=== PATIENT | female | born 1985 | race American Indian/Alaskan Native ===

== ENCOUNTER 2019-03-26 08:24 | Emergency (ER) | payer OTHER ==
--- NOTE | 2019-03-26 09:03 | Emergency Department Report ---
<NAVARRO KIRKLAND T - Last Filed: 03/26/19 08:59> ED General Adult HPI - General Chief complaint: Medical Clearance Stated complaint: STICK WITH NEEDLE Time Seen by Provider: 03/26/19 08:56 Source: patient Mode of arrival: Ambulatory Limitations: No Limitations - History of Present Illness Initial comments: stuck with needle, pt refused labs, requesting PEP - Related Data Previous Rx's Medication Instructions Recorded Last Taken Type Zidovudine 300 mg PO BID #56 tablet 03/26/19 Unknown Rx lamiVUDine [Lamivudine] 150 mg PO BID #56 tablet 03/26/19 Unknown Rx Allergies Allergy/AdvReac Type Severity Reaction Status Date / Time No Known Allergies Allergy Verified 03/26/19 08:27 ED Review of Systems Comment: All other systems reviewed and negative ED Past Medical Hx - Past Medical History Previous Medical History?: No - Surgical History Past Surgical History?: No - Social History Smoking Status: Never Smoker Substance Use Type: None - Medications Home Medications: Home Medications Medication Instructions Recorded Confirmed Last Taken Type Zidovudine 300 mg PO BID #56 tablet 03/26/19 Unknown Rx lamiVUDine [Lamivudine] 150 mg PO BID #56 tablet 03/26/19 Unknown Rx ED Physical Exam - General Limitations: No Limitations General appearance: alert, in no apparent distress - Head Head exam: Present: atraumatic, normocephalic ED Medical Decision Making - Medical Decision Making PEP Rx ED Disposition Clinical Impression: Needle stick injury of finger Disposition: DC-01 TO HOME OR SELFCARE Is pt being admited?: No Condition: Good Prescriptions: lamiVUDine [Lamivudine] 150 mg PO BID #56 tablet Zidovudine 300 mg PO BID #56 tablet Referrals: [facility] MD DEVAUGHN [Primary Care Provider] - 3-5 Days Time of Disposition: 09:03 <MIKAEL SOLIS P - Last Filed: 04/14/19 05:57> ED Review of Systems ROS: Stated complaint: STICK WITH NEEDLE Other details as noted in HPI ED Course Vital Signs 03/26/19 08:45 Temperature 97.8 F Pulse Rate 75 Respiratory 17 Rate Blood Pressure 126/60 [Left] O2 Sat by Pulse 100 Oximetry ED Medical Decision Making - Lab Data Result diagrams: 03/26/19 09:11 03/26/19 09:11 Critical care attestation.: If time is entered above; I have spent that time in minutes in the direct care of this critically ill patient, excluding procedure time. ED Disposition Is pt being admited?: No
[2019-03-26 09:48] VITALS: BP 126/60
[2019-03-26 10:04] LABS: HCG Qualitative,Urine Negative (Negative)
[2019-03-26 10:06] LABS: Bacteria,Urine 2+ /HPF (Negative); Bilirubin,Urine NEG (Negative); Blood,Urine MOD (Negative); Color,Urine Yellow (Yellow); Mucus,Urine FEW /HPF; Protein,Urine <15 mg/dL mg/dL (Negative); Urobilinogen,Urine < 2.0 mg/dL (<2.0)
[2019-03-26 10:22] LABS: Basophils % (Auto) 0.6 % (0.0-1.8); Eosinophils # (Auto) 0.1 K/mm3 (0.0-0.4); Eosinophils % (Auto) 1.4 % (0.0-4.3); Hematocrit 38.2 % (30.3-42.9); Hemoglobin 12.5 gm/dl (10.1-14.3); Lymphocytes # (Auto) 1.5 K/mm3 (1.2-5.4); Lymphocytes % (Auto) 39.3 % (13.4-35.0); Mean Corpuscular HGB Conc 33 % (30-34); Mean Corpuscular Volume 84 fl (79-97); Monocytes # (Auto) 0.4 K/mm3 (0.0-0.8); Monocytes % (Auto) 10.6 % (0.0-7.3); Platelet Count 186 K/mm3 (140-440); Red Blood Count 4.56 M/mm3 (3.65-5.03); Red Cell Distribution Width 14.6 % (13.2-15.2)
[2019-03-26 10:24] LABS: BUN/Creatinine Ratio 28; Blood Urea Nitrogen 11 mg/dL (7-17); Calcium 9.5 mg/dL (8.4-10.2); Hemolysis Index 2
== END 2019-03-26 12:00 | disposition home or self-care (01) ==
LOC: ED 08:24
DX: T14.8XXA Other injury of unspecified body region, initial encounter (principal); W46.0XXA Contact with hypodermic needle, initial encounter; Y93.89 Activity, other specified; Y92.89 Other specified places as the place of occurrence of the external cause; Y99.8 Other external cause status
CPT/HCPCS: 36415; 80048; 81001; 81025; 85025; 99283